=== PATIENT | female | born 1990 | race Caucasian/White ===

== ENCOUNTER 2019-06-07 00:03 | Emergency (ER) | payer MEDICAID ==
[~2019-06-07] VITALS: Ht 162.6 cm; Wt 60.4 kg
[2019-06-07 00:12] VITALS: Ht 162.6 cm; Wt 60.4 kg
[2019-06-07 01:50] LABS: microscopic required? NO
[2019-06-07 02:00] LABS: UA SPECIFIC GRAVITY <=1.005 (1.005-1.035); urine erythrocyte NEGATIVE (NEGATIVE)
[2019-06-07 03:01] LABS: BASOPHIL % 0.9 % (0-2); PLATELET COUNT 269 x10^3mcL (130-400); RED CELL DISTRIBUTION WIDTH 13.4 % (11.5-14.5)
[2019-06-07 03:50] VITALS: BP 103/44
== END 2019-06-07 03:50 | disposition home or self-care (01) ==
LOC: ED 00:03
PROVIDERS: Emergency Medicine
DX: O26.891 Other specified pregnancy related conditions, first trimester (principal); R10.9 Unspecified abdominal pain; Z98.890 Other specified postprocedural states; Z3A.01 Less than 8 weeks gestation of pregnancy
CPT/HCPCS: 36415; Q0092

== ENCOUNTER 2019-11-20 12:06 | Emergency (ER) | payer OTHER ==
[~2019-11-20] VITALS: Ht 162.6 cm; Wt 65.8 kg
[2019-11-20 12:08] VITALS: Ht 162.6 cm; Wt 65.8 kg
[2019-11-20 14:21] VITALS: BP 98/49
== END 2019-11-20 14:21 | disposition short-term general hospital (02) ==
LOC: ED 12:06
DX: O60.12X0 Preterm labor second trimester with preterm delivery second trimester, not applicable or unspecified (principal); E78.00 Pure hypercholesterolemia, unspecified; Z3A.26 26 weeks gestation of pregnancy